=== PATIENT | female | born 1985 | race Caucasian/White ===

== ENCOUNTER 2021-12-30 15:44 | Emergency (ER) | payer BC ==
[2021-12-30] MEDS ORDERED: Ketorolac 60 MG/2 ML SDV IM ONE (16:06)
[2021-12-30] MEDS ORDERED: Ondansetron 4 MG Tab.DIS PO ONE (17:10)
[2021-12-30] MEDS ORDERED: HYDROmorphone 1 MG/ML Syringe IM ONE (17:10)
[2021-12-30 18:19] VITALS: BP 129/81; PULSE 70
== END 2021-12-30 18:14 | disposition home or self-care (01) ==
LOC: MW.ED 15:44
DX: S52.501A Unspecified fracture of the lower end of right radius, initial encounter for closed fracture (principal); E11.9 Type 2 diabetes mellitus without complications; Z79.84 Long term (current) use of oral hypoglycemic drugs; Z79.899 Other long term (current) drug therapy; W18.30XA Fall on same level, unspecified, initial encounter
CPT/HCPCS: 29105; 73110; 96372; 99283; A9270; J1170; J1885

== ENCOUNTER 2022-06-25 12:26 | Emergency (ER) | payer BC, OTHER ==
[2022-06-25] MEDS ORDERED: oxyCODONE 5 MG Tab PO STA (14:09)
[2022-06-25 15:14] VITALS: BP 133/85; PULSE 90
== END 2022-06-25 15:00 | disposition home or self-care (01) ==
LOC: MW.ED 12:26
DX: S52.501A Unspecified fracture of the lower end of right radius, initial encounter for closed fracture (principal); S52.611A Displaced fracture of right ulna styloid process, initial encounter for closed fracture; E11.9 Type 2 diabetes mellitus without complications; E03.9 Hypothyroidism, unspecified; F17.210 Nicotine dependence, cigarettes, uncomplicated; Z79.84 Long term (current) use of oral hypoglycemic drugs; Z79.899 Other long term (current) drug therapy; W01.0XXA Fall on same level from slipping, tripping and stumbling without subsequent striking against object, initial encounter
CPT/HCPCS: 29105; 73110; 99283; A9270; 29125

== ENCOUNTER 2022-09-05 17:21 | Emergency (ER) | payer BC ==
[2022-09-05 17:55] VITALS: BP 141/85; PULSE 89
[2022-09-05] MEDS ORDERED: Ibuprofen 600 MG Tab PO ONE (18:25)
[2022-09-05] MEDS ORDERED: Acetaminophen/oxyCODONE 325-5 MG Tab PO ONE (18:25)
== END 2022-09-05 19:41 | disposition home or self-care (01) ==
LOC: MW.ED 17:21
DX: S93.401A Sprain of unspecified ligament of right ankle, initial encounter (principal); E03.9 Hypothyroidism, unspecified; E11.9 Type 2 diabetes mellitus without complications; Z79.84 Long term (current) use of oral hypoglycemic drugs; Z79.899 Other long term (current) drug therapy; X50.1XXA Overexertion from prolonged static or awkward postures, initial encounter
CPT/HCPCS: 73610; 99283; A9270

== ENCOUNTER 2024-11-24 08:18 | Emergency (ER) | payer BC ==
[2024-11-24] MEDS: Ondansetron 4 MG/2 ML SDV IVPUSH ONE (09:35)
[2024-11-24 09:36] LABS: BASOPHILS ABSOLUTE AUTO 0.04 K/uL (0.00-0.20); BASOPHILS PERCENT AUTO 0.7 % (0.0-1.0); EOSINOPHILS ABSOLUTE AUTO 0.17 K/uL (0.00-0.45); EOSINOPHILS PERCENT AUTO 2.9 % (0.0-6.0); IMMATURE GRAN ABSOLUTE AUTO 0.02 K/uL (0.00-0.05); IMMATURE GRAN PERCENT AUTO 0.3 % (0.0-0.4); LYMPHOCYTES ABSOLUTE AUTO 0.77 K/uL (1.00-4.80); LYMPHOCYTES PERCENT AUTO 13.1 % (24.0-44.0); MEAN PLATELET VOLUME 10.2 fL (9.4-12.3); MONOCYTES ABSOLUTE AUTO 0.56 K/uL (0.00-0.80); MONOCYTES PERCENT AUTO 9.6 % (0.0-8.0); NEUTROPHILS ABSOLUTE AUTO 4.30 K/uL (1.80-7.70); NEUTROPHILS PERCENT AUTO 73.4 % (41.0-71.0); NRBC ABSOLUTE 0.00 K/uL (0.00-0.02); NRBC PERCENT 0.0 /100WBC (0.0-0.2); PLATELET COUNT,PLT 234 K/uL (150-400); RED BLOOD CELL COUNT 5.13 M/uL (4.10-5.30); WHITE BLOOD CELL COUNT,WBC 5.86 K/uL (3.9-11.3)
[2024-11-24 09:43] LABS: APPEARANCE,URINE SLT CLOUDY; GLUCOSE,URINE NEGATIVE (NEGATIVE); OCCULT BLOOD,URINE TRACE-INTACT (NEGATIVE)
[2024-11-24 09:49] LABS: SQUAMOUS EPITHELIAL CELLS,UR FEW
[2024-11-24 09:50] LABS: A/G RATIO 1.0 (0.9-1.6); ALANINE AMINOTRANSFERASE,ALT 27.0 IU/L (14-63); ASPARTATE AMNIOTRANSFERASE,AST 19.0 IU/L (15-37); BILIRUBIN TOTAL 0.9 mg/dL (0.2-1.0); BLOOD UREA NITROGEN,BUN 21.0 mg/dL (7.0-18.0); CARBON DIOXIDE,CO2 26.7 mmol/L (21.0-32.0); CHLORIDE,CL 103.0 mmol/L (98-107); CREATININE 1.1 mg/dL (0.6-1.0); EST CRCL DRUG DOSING (CG) 72.78 mL/min; GLUCOSE RANDOM 99.0 mg/dL (74-106); POTASSIUM,K 2.9 mmol/L (3.5-5.1); PROTEIN TOTAL,TP 7.6 g/dL (6.4-8.2); SODIUM,NA 139.0 mmol/L (136-145)
[2024-11-24 09:52] LABS: ESTIMATED GFR 65.0 mL/min (>60)
[2024-11-24] MEDS: Magnesium Sulfate 2 GM/50 mL 2 GM in Premix Bag 1 BAG IV ONE (10:39)
[2024-11-24] MEDS: Potassium Chloride 20 MEQ Tab.ER PO ONE (10:39)
[2024-11-24 12:09] VITALS: BP 109/69; PULSE 61
== END 2024-11-24 12:08 | disposition home or self-care (01) ==
LOC: MW.ED 08:18
DX: E87.6 Hypokalemia (principal); E83.42 Hypomagnesemia; E11.9 Type 2 diabetes mellitus without complications; E03.9 Hypothyroidism, unspecified; Z88.1 Allergy status to other antibiotic agents; Z79.84 Long term (current) use of oral hypoglycemic drugs; Z79.899 Other long term (current) drug therapy; Z79.890 Hormone replacement therapy; Z79.85 Long-term (current) use of injectable non-insulin antidiabetic drugs; Z90.49 Acquired absence of other specified parts of digestive tract
CPT/HCPCS: 36415; 80053; 81001; 81025; 83605; 83690; 83735; 85025; 96361; 96365; 96375; 99284; A9270; J2405; J3475; J7030; 99283